=== PATIENT | male | born 1995 | race Two or more races ===

== ENCOUNTER 2017-05-09 12:46 | Emergency (ER) | payer OTHER ==
[2017-05-09] MEDS ORDERED: OXYCODONE-ACETAMINOPHEN 5-325 MG TABLET PO ONE (14:32)
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
[2017-05-09 16:29] VITALS: BP 120/69
== END 2017-05-09 16:29 | disposition home or self-care (01) ==
LOC: ER 12:46
DX: S16.1XXA Strain of muscle, fascia and tendon at neck level, initial encounter (principal); S29.019A Strain of muscle and tendon of unspecified wall of thorax, initial encounter; S09.90XA Unspecified injury of head, initial encounter; V49.50XA Passenger injured in collision with unspecified motor vehicles in traffic accident, initial encounter; M54.2 Cervicalgia; R51 Headache; M54.9 Dorsalgia, unspecified; F17.200 Nicotine dependence, unspecified, uncomplicated
CPT/HCPCS: 70450; 72070; 72125; 99284